=== PATIENT | female | born 2000 | race Caucasian/White ===

== ENCOUNTER 2020-07-03 11:57 | Emergency (ER) | payer SELFPAY ==
[~2020-07-03] VITALS: Ht 162.6 cm; Wt 75.0 kg
[~2020-07-03 11:57] MED LIST: AMOXICILLIN500 MG PO; AMOXIL400 MG/5 M OR; NAPROSYN500 MG PO; NO; ZITHROMAX250 MG PO; ZOVIRAX51 EX
[2020-07-03 13:44] VITALS: BP 138/79
== END 2020-07-03 13:51 | disposition home or self-care (01) | DRG 880 ==
LOC: ED 11:57
DX: F41.9 Anxiety disorder, unspecified (principal); R00.0 Tachycardia, unspecified